=== PATIENT | male | born 1975 | race Caucasian/White ===

== ENCOUNTER 2019-10-15 10:31 | Outpatient (RCR) | payer MEDICARE, MEDICAID, SELFPAY ==
[2019-10-15 11:15] VITALS: BP 114/74; PULSE 87; RESP 18; TEMP 36.9
--- NOTE | 2019-10-15 17:05 | PCM.WC.HP ---
(1) Wound of right upper extremity Status: Acute Current Visit: Yes Code(s): S41.101A - Unspecified open wound of right upper arm, initial encounter Comment: Penetrating with fat layer exposed History of Present Illness Date of Service: 10/15/19 Chief Complaint: Nonhealing right upper extremity wound. History of Wound: Mr. Rollins was referred to the wound clinic due to Nonhealing right upper extremity wound. He is here with his aides who state it has been present for about 2 weeks. Currently resides in a home and his aide states that he picks at his skin a lot with recurrent scabbing and reopening. No dressing has been applied to this wound. They report no other concerns at this time. Past Medical History Allergies/Adverse Reactions: Allergies Gadolinium-MRI Contrast Medium [DYE] Allergy (Verified 10/15/19 11:21) Itching Home Medications: Ambulatory Orders Medication Instructions Recorded Atenolol [Tenormin (beta Ravi)] 37.5 mg PO DAILY 10/15/19 Chlorpromazine HCl 200 mg PO TID 10/15/19 Divalproex (ER) [Depakote ER] 1,000 mg PO QHS 10/15/19 Divalproex (ER) [Depakote ER] 500 mg PO DAILY 10/15/19 Loperamide HCl [Imodium A-D] 30 ml PO Q4H PRN PRN 10/15/19 Loratadine [Claritin] 10 mg PO DAILY 10/15/19 Lorazepam [Ativan] 0.5 mg PO TID 10/15/19 Multivit with Iron,Minerals 1 tab PO DAILY 10/15/19 [Complete Senior] Omeprazole [Prilosec] 20 mg PO DAILY 10/15/19 Paroxetine [Paxil] 40 mg PO DAILY 10/15/19 Quetiapine Fumarate [Seroquel] 100 mg PO BID 10/15/19 Risperidone [Risperdal] 1 mg PO DAILY 10/15/19 Smoking Status: Never smoker Review of Systems Constitutional: Denies: Anorexia, Chills, Fever Eyes: Denies: Drainage, Redness HEENT: Denies: Difficulty Hearing, Difficulty Swallowing, Nasal bleeding Cardiovascular: Denies: Edema, Orthopnea Respiratory: Denies: Hemoptysis, Wheezing Gastrointestinal: Denies: Hematemesis, Vomiting Genitourinary: Denies: Hematuria Skin: Denies: Jaundice - Physical Exam Vital Signs Temp Pulse Resp BP 98.4 F 87 18 114/74 10/15/19 11:15 10/15/19 11:15 10/15/19 11:15 10/15/19 11:15 General: Alert, Cooperative, No apparent distress HEENT: Atraumatic, Normocephalic Oral: Moist Mucosa Neck: Supple Lungs: Normal air movement Abdomen: Non Tender, Obese Extremities: No cyanosis Skin: Ulcer/ Wound Wound Measurements and Assessment WC - Nurse 1 - General Ulcer Measurement Start: 10/15/19 11:13 Freq: Status: Active Protocol: Activity Type Activity Date Activity User E-Sign Co-Sign Detail Recorded Client Recorded Date Recorded By Document 10/15/19 11:15 RB [id number] 10/15/19 11:18 RB 10/15/19 11:15 Wound Center Nurse 1 [Ulcer Assessment] 1. R arm lateral -Combined with other wound No -Current Size (cm) - Length 2 -Current Size (cm) - Width 1.4 -Current Size (cm) - Depth 0.1 -Total Square Cm 2.8 -Photo Taken Yes -Tunneling No -Undermining/Tunneling No -Circular Undermining No -Exudate Amt Small -Exudate Type Serosanguineous -Wound Margin Flat & Intact -Granulation Amt Medium (34-66%) -Granulation Quality [employer] -Slough/Fibrin Yes -Necrosis Amt Small (1-33%) -Necrotic Tissue Type Adherent Slough -Structure Exposed N/A -Texture (Erika-wound Skin Appearance) Scarring -Moisture (Erika-wound Skin Appearance Assessed ) -Color (Erika-wound Skin Appearance) Assessed -Temperature (Erika-wound Skin No Abnormality Appearance) (Pt Warm) -Tenderness on Palpation (Erika-wound No Skin Appearance) -Ulcer Cleansing Wound Cleanser -Foul Odor after Cleansing No -Anesthetic Used 4% Lidocaine Solution WC - Nurse 2 - General Ulcer CM Notes Start: 10/15/19 11:13 Freq: Status: Active Protocol: Activity Type Activity Date Activity User E-Sign Co-Sign Detail Recorded Client Recorded Date Recorded By Document 10/15/19 13:00 PL [id number] 10/15/19 13:02 PL 10/15/19 13:00 Wound Center Nurse 2 [Procedure/Treatment] -Time 10:52 -Correct Patient Yes -Correct Side, Site, Position Yes -Correct Procedure Yes -Procedure Performed Yes -Type of Procedure Debridement -Clinical Debridement Subcutaneous -Post Debridement Size (cm) - Length 1 -Post Debridement Size (cm) - Width 5 -Post Debridement Size (cm) - Depth 0.2 -Total Square Cm 5 -Wound/Ulcer Outcome Not Healed -Ulcer Cleansing Rinsed/ Irrigated with Saline -Foul Odor after Cleansing No -Bleeding Controlled with Pressure -Treatment Response Procedure Tolerated Well [See Physician Procedure note for Specifics] Pain Scale: 0-10 Numeric [Pain] -Is Patient Pain Free? Yes Musculoskeletal: No Muscle Wasting Psych/Mental Status: Normal Affect Debridement Note Post-Debridement Measurements/Treatment WC - Nurse 2 - General Ulcer CM Notes Start: 10/15/19 11:13 Freq: Status: Active Protocol: Activity Type Activity Date Activity User E-Sign Co-Sign Detail Recorded Client Recorded Date Recorded By Document 10/15/19 13:00 GABBI [id number] 10/15/19 13:02 PL 10/15/19 13:00 Wound Center Nurse 2 1. R arm lateral -Time 10:52 -Correct Patient Yes -Correct Side, Site, Position Yes -Correct Procedure Yes -Procedure Performed Yes -Type of Procedure Debridement -Clinical Debridement Subcutaneous -Post Debridement Size (cm) - Length 1 -Post Debridement Size (cm) - Width 5 -Post Debridement Size (cm) - Depth 0.2 -Total Square Cm 5 -Wound/Ulcer Outcome Not Healed -Ulcer Cleansing Rinsed/ Irrigated with Saline -Foul Odor after Cleansing No -Bleeding Controlled with Pressure -Treatment Response Procedure Tolerated Well Pain Scale: 0-10 Numeric Is Patient Pain Free? Yes Wound debrided: Right upper extremity Type of Debridement: Excisional debridement Anesthesia Used: 4% Lidocaine Solution Depth: Down to and including healthy tissue, in the subcutaneous layer Percentage of wound debrided: 100 Instrument Used: 7mm curette Tissue Removed: Slough and devitalized tissue Severity: Fat Layer Exposed Amount of bleeding with debridement: Mild Bleeding Controlled with: Pressure Patient tolerated procedure well Assessment/Plan Active Problems Wound of right upper extremity (Acute) Penetrating with fat layer exposed Assessment: Recurrent wounds. Right upper extremity wound. Plan: Debridement done as documented above. Procedure was well-tolerated. Promogran daily with Adaptic over top. Keep area protected. Increase protein intake. Call with any concerns. Follow-up in 2 weeks. This note was generated with [employer] dictation software. It may contain incorrect words, spelling, and punctuation that were not noted in checking the note before signing. Multi Select Codes - Visit Charges Office Visit/Consults: 93681 OV L3 New - Integumentary Integumentary CPT Codes: 75465 Radha subq tissue 20 sq cm/<
== END 2019-10-27 23:59 ==
LOC: WC 10:31
PROVIDERS: Visit Provider Internal Medicine
DX: S41.131A Puncture wound without foreign body of right upper arm, initial encounter (principal); X58.XXXA Exposure to other specified factors, initial encounter
CPT/HCPCS: 11042; 99203; G0463

== ENCOUNTER 2019-11-19 11:30 | Outpatient (RCR) | payer MEDICARE, MEDICAID, SELFPAY ==
[2019-10-28 00:38] VITALS: BP 114/74; PULSE 87; RESP 18; TEMP 36.9
[2019-10-29 10:29] VITALS: BP 141/78; PULSE 88; RESP 18; TEMP 36.2
--- NOTE | 2019-10-29 11:54 | PCM.WC.PN ---
(1) Ulcer of right lower extremity with fat layer exposed Status: Acute Current Visit: Yes Code(s): L97.912 - Non-pressure chronic ulcer of unspecified part of right lower leg with fat layer exposed (2) Wound of right upper extremity Status: Acute Current Visit: Yes Code(s): S41.101A - Unspecified open wound of right upper arm, initial encounter Comment: Penetrating with fat layer exposed Type of Wound Date of Service: 10/29/19 Chief Complaint: Nonhealing right upper extremity wound. History of Wound: Mr. Rollins was referred to the wound clinic due to Nonhealing right upper extremity wound. He is here with his aides who state it has been present for about 2 weeks. Currently resides in a home and his aide states that he picks at his skin a lot with recurrent scabbing and reopening. No dressing has been applied to this wound. They report no other concerns at this time. Progress of Wound: Presents with a new right lower extremity ulcer. Caregivers are not sure but believes that he may have picked it. - Physical Exam Vital Signs Temp Pulse Resp BP 97.1 F L 88 18 141/78 H 10/29/19 10:29 10/29/19 10:29 10/29/19 10:29 10/29/19 10:29 General: Alert, Cooperative, No apparent distress HEENT: Atraumatic, Normocephalic Oral: Moist Mucosa Neck: Supple Lungs: Normal air movement Abdomen: Non Tender, Obese Extremities: No cyanosis Skin: Ulcer/ Wound Wound Measurements and Assessment WC - Nurse 1 - General Ulcer Measurement Start: 10/29/19 10:29 Freq: Status: Active Protocol: Activity Type Activity Date Activity User E-Sign Co-Sign Detail Recorded Client Recorded Date Recorded By Document 10/29/19 10:29 RB [id number] 10/29/19 10:32 RB 10/29/19 10:29 Wound Center Nurse 1 [Ulcer Assessment] 2. R mckenna -Combined with other wound No -Current Size (cm) - Length 0.7 -Current Size (cm) - Width 1 -Current Size (cm) - Depth 0.1 -Total Square Cm 0.7 -Photo Taken Yes -Tunneling No -Undermining/Tunneling No -Circular Undermining No -Exudate Amt Small -Exudate Type Serosanguineous -Wound Margin Flat & Intact -Granulation Amt Large (67-100%) -Granulation Quality Red -Slough/Fibrin Yes -Necrosis Amt Small (1-33%) -Necrotic Tissue Type Adherent Slough -Structure Exposed N/A -Texture (Erkia-wound Skin Appearance) Assessed, Scarring -Moisture (Erika-wound Skin Appearance Assessed ) -Color (Erika-wound Skin Appearance) Assessed -Temperature (Erika-wound Skin No Abnormality Appearance) (Pt Warm) -Tenderness on Palpation (Erika-wound No Skin Appearance) -Ulcer Cleansing Wound Cleanser -Foul Odor after Cleansing No -Anesthetic Used 4% Lidocaine Solution 1. R arm lateral -Combined with other wound No -Current Size (cm) - Length 1.1 -Current Size (cm) - Width 1.9 -Current Size (cm) - Depth 0.1 -Total Square Cm 2.09 -Tunneling No -Undermining/Tunneling No -Circular Undermining No -Exudate Amt Small -Exudate Type Serosanguineous -Wound Margin Flat & Intact -Granulation Amt Large (67-100%) -Granulation Quality Red -Slough/Fibrin Yes -Necrosis Amt Small (1-33%) -Necrotic Tissue Type Adherent Slough -Structure Exposed N/A -Texture (Erika-wound Skin Appearance) Assessed, Scarring -Moisture (Erika-wound Skin Appearance Assessed ) -Color (Erika-wound Skin Appearance) Assessed -Temperature (Erika-wound Skin No Abnormality Appearance) (Pt Warm) -Tenderness on Palpation (Erika-wound No Skin Appearance) -Ulcer Cleansing Wound Cleanser -Foul Odor after Cleansing No -Anesthetic Used 4% Lidocaine Solution WC - Nurse 2 - General Ulcer CM Notes Start: 10/29/19 10:29 Freq: Status: Active Protocol: Activity Type Activity Date Activity User E-Sign Co-Sign Detail Recorded Client Recorded Date Recorded By Document 10/29/19 10:34 MW [id number] 10/29/19 10:37 MW 10/29/19 10:34 Wound Center Nurse 2 [Procedure/Treatment] 2. R mckenna -Time 10:35 -Correct Patient Yes -Correct Side, Site, Position Yes -Correct Procedure Yes -Procedure Performed Yes -Type of Procedure Debridement -Clinical Debridement Subcutaneous -Post Debridement Size (cm) - Length 0.7 -Post Debridement Size (cm) - Width 1.0 -Post Debridement Size (cm) - Depth 0.1 -Total Square Cm 0.70 -Wound/Ulcer Outcome Not Healed -Ulcer Cleansing Rinsed/ Irrigated with Saline -Foul Odor after Cleansing No -Bioengineered Tissue No -Bleeding Controlled with Pressure -Offloading No -Treatment Response Procedure Tolerated Well 1. R arm lateral -Time 10:35 -Correct Patient Yes -Correct Side, Site, Position Yes -Correct Procedure Yes -Procedure Performed Yes -Type of Procedure Debridement -Clinical Debridement Subcutaneous -Post Debridement Size (cm) - Length 1.4 -Post Debridement Size (cm) - Width 1.5 -Post Debridement Size (cm) - Depth 0.1 -Total Square Cm 2.10 -Wound/Ulcer Outcome Not Healed -Ulcer Cleansing Rinsed/ Irrigated with Saline -Foul Odor after Cleansing No -Bioengineered Tissue No -Bleeding Controlled with Pressure -Offloading No -Treatment Response Procedure Tolerated Well [See Physician Procedure note for Specifics] Pain Scale: 0-10 Numeric [Pain] -Is Patient Pain Free? Yes Musculoskeletal: No Muscle Wasting Neurological: Cranial nerves II-XII grossly intact Psych/Mental Status: Normal Affect Debridement Note Post-Debridement Measurements/Treatment WC - Nurse 2 - General Ulcer CM Notes Start: 10/29/19 10:29 Freq: Status: Active Protocol: Activity Type Activity Date Activity User E-Sign Co-Sign Detail Recorded Client Recorded Date Recorded By Document 10/29/19 10:34 MW [id number] 10/29/19 10:37 MW 10/29/19 10:34 Wound Center Nurse 2 2. R mckenna -Time 10:35 -Correct Patient Yes -Correct Side, Site, Position Yes -Correct Procedure Yes -Procedure Performed Yes -Type of Procedure Debridement -Clinical Debridement Subcutaneous -Post Debridement Size (cm) - Length 0.7 -Post Debridement Size (cm) - Width 1.0 -Post Debridement Size (cm) - Depth 0.1 -Total Square Cm 0.70 -Wound/Ulcer Outcome Not Healed -Ulcer Cleansing Rinsed/ Irrigated with Saline -Foul Odor after Cleansing No -Bioengineered Tissue No -Bleeding Controlled with Pressure -Offloading No -Treatment Response Procedure Tolerated Well 1. R arm lateral -Time 10:35 -Correct Patient Yes -Correct Side, Site, Position Yes -Correct Procedure Yes -Procedure Performed Yes -Type of Procedure Debridement -Clinical Debridement Subcutaneous -Post Debridement Size (cm) - Length 1.4 -Post Debridement Size (cm) - Width 1.5 -Post Debridement Size (cm) - Depth 0.1 -Total Square Cm 2.10 -Wound/Ulcer Outcome Not Healed -Ulcer Cleansing Rinsed/ Irrigated with Saline -Foul Odor after Cleansing No -Bioengineered Tissue No -Bleeding Controlled with Pressure -Offloading No -Treatment Response Procedure Tolerated Well Pain Scale: 0-10 Numeric Is Patient Pain Free? Yes Wound debrided: Right upper extremity (arm) Type of Debridement: Excisional debridement Anesthesia Used: 4% Lidocaine Solution Depth: Down to and including healthy tissue, in the subcutaneous layer Percentage of wound debrided: 100 Instrument Used: 5mm curette Tissue Removed: Slough and devitalized tissue Severity: Fat Layer Exposed Amount of bleeding with debridement: Mild Bleeding Controlled with: Pressure Patient tolerated procedure well - Additional Wound Wound debrided: Right lower extremity Type of Debridement: Excisional debridement Anesthesia Used: 4% Lidocaine Solution Depth: Down to and including healthy tissue, in the subcutaneous layer Instrument Used: 3mm curette Tissue Removed: Slough and devitalized tissue Severity: Fat Layer Exposed Amount of bleeding with debridement: Mild Bleeding Controlled with: Pressure Patient tolerated procedure: Patient tolerated procedure well Assessment/Plan Active Problems Wound of right upper extremity (Acute) Penetrating with fat layer exposed Ulcer of right lower extremity with fat layer exposed (Acute) Assessment: Recurrent wounds. Right upper extremity wound. Right lower extremity ulcer Plan: Debridement done as documented above. Procedure was well-tolerated. Promogran daily to both areas with Adaptic over top. Keep area protected. Increase protein intake. Call with any concerns. Follow-up in 2 weeks. This note was generated with [employer] dictation software. It may contain incorrect words, spelling, and punctuation that were not noted in checking the note before signing. [id number]: [id number] Radha subq tissue 20 sq cm/<
[2019-11-12 10:13] VITALS: BP 116/76; PULSE 88; RESP 18; TEMP 36.9
--- NOTE | 2019-11-12 11:59 | PCM.WC.PN ---
(1) Ulcer of right lower extremity with fat layer exposed Status: Acute Current Visit: Yes Code(s): L97.912 - Non-pressure chronic ulcer of unspecified part of right lower leg with fat layer exposed (2) Wound of right upper extremity Status: Acute Current Visit: Yes Code(s): S41.101A - Unspecified open wound of right upper arm, initial encounter Comment: Penetrating with fat layer exposed Type of Wound Date of Service: 11/12/19 Chief Complaint: Nonhealing right upper extremity wound. History of Wound: Mr. Rollins was referred to the wound clinic due to Nonhealing right upper extremity wound. He is here with his aides who state it has been present for about 2 weeks. Currently resides in a home and his aide states that he picks at his skin a lot with recurrent scabbing and reopening. No dressing has been applied to this wound. They report no other concerns at this time. Progress of Wound: Improving, no new concerns at this time. - Physical Exam Vital Signs Temp Pulse Resp BP 98.5 F 88 18 116/76 11/12/19 10:13 11/12/19 10:13 11/12/19 10:13 11/12/19 10:13 General: Alert, Oriented x3, Cooperative, No apparent distress HEENT: Atraumatic, Normocephalic Oral: Moist Mucosa Neck: Supple Lungs: Normal air movement Extremities: No cyanosis Skin: Ulcer/ Wound Wound Measurements and Assessment WC - Nurse 1 - General Ulcer Measurement Start: 10/29/19 10:29 Freq: Status: Active Protocol: Activity Type Activity Date Activity User E-Sign Co-Sign Detail Recorded Client Recorded Date Recorded By Document 11/12/19 10:13 [id number] 11/12/19 10:19 STEVEN 11/12/19 10:13 Wound Center Nurse 1 [Ulcer Assessment] 2. R mckenna -Combined with other wound No -Current Size (cm) - Length 0.1 -Current Size (cm) - Width 0.1 -Current Size (cm) - Depth 0.1 -Total Square Cm 0.01 -Tunneling No -Undermining/Tunneling No -Circular Undermining No -Exudate Amt Small -Exudate Type Serosanguineous -Wound Margin Flat & Intact -Granulation Amt Medium (34-66%) -Granulation Quality [place],Red -Slough/Fibrin Yes -Necrosis Amt Small (1-33%) -Necrotic Tissue Type Adherent Slough -Structure Exposed N/A -Texture (Erika-wound Skin Appearance) Assessed -Moisture (Erika-wound Skin Appearance Assessed ) -Color (Erika-wound Skin Appearance) Assessed -Temperature (Erika-wound Skin No Abnormality Appearance) (Pt Warm) -Tenderness on Palpation (Erika-wound No Skin Appearance) -Ulcer Cleansing Wound Cleanser -Foul Odor after Cleansing No -Anesthetic Used 4% Lidocaine Solution 1. R arm lateral -Combined with other wound No -Current Size (cm) - Length 1.1 -Current Size (cm) - Width 1.9 -Current Size (cm) - Depth 0.1 -Total Square Cm 2.09 -Tunneling No -Undermining/Tunneling No -Circular Undermining No -Exudate Amt Small -Exudate Type Serosanguineous -Wound Margin Flat & Intact -Granulation Amt Large (67-100%) -Granulation Quality [place],Red -Slough/Fibrin Yes -Necrosis Amt Small (1-33%) -Necrotic Tissue Type Adherent Slough -Structure Exposed N/A -Texture (Erika-wound Skin Appearance) Assessed -Moisture (Erika-wound Skin Appearance Assessed ) -Color (Erika-wound Skin Appearance) Assessed -Temperature (Erika-wound Skin No Abnormality Appearance) (Pt Warm) -Tenderness on Palpation (Erika-wound No Skin Appearance) -Ulcer Cleansing Wound Cleanser -Foul Odor after Cleansing No -Anesthetic Used 4% Lidocaine Solution WC - Nurse 2 - General Ulcer CM Notes Start: 10/29/19 10:29 Freq: Status: Active Protocol: Activity Type Activity Date Activity User E-Sign Co-Sign Detail Recorded Client Recorded Date Recorded By Document 11/12/19 10:32 MW [id number] 11/12/19 10:35 MW 11/12/19 10:32 Wound Center Nurse 2 [Procedure/Treatment] 2. R mckenna -Time 10:33 -Correct Patient Yes -Correct Side, Site, Position Yes -Correct Procedure Yes -Procedure Performed No -Post Debridement Size (cm) - Length 0.1 -Post Debridement Size (cm) - Width 0.1 -Post Debridement Size (cm) - Depth 0.1 -Total Square Cm 0.01 -Wound/Ulcer Outcome Not Healed -Ulcer Cleansing Rinsed/ Irrigated with Saline -Foul Odor after Cleansing No -Bioengineered Tissue No -Bleeding Controlled with NA -Offloading No -Treatment Response Procedure Tolerated Well 1. R arm lateral -Time 10:33 -Correct Patient Yes -Correct Side, Site, Position Yes -Correct Procedure Yes -Procedure Performed Yes -Type of Procedure Debridement -Clinical Debridement Subcutaneous -Post Debridement Size (cm) - Length 1.0 -Post Debridement Size (cm) - Width 1.2 -Post Debridement Size (cm) - Depth 0.1 -Total Square Cm 1.20 -Wound/Ulcer Outcome Not Healed -Ulcer Cleansing Rinsed/ Irrigated with Saline -Foul Odor after Cleansing No -Bioengineered Tissue No -Bleeding Controlled with Pressure -Offloading No -Treatment Response Procedure Tolerated Well [See Physician Procedure note for Specifics] Pain Scale: 0-10 Numeric [Pain] -Is Patient Pain Free? Yes Musculoskeletal: No Muscle Wasting Neurological: Cranial nerves II-XII grossly intact Psych/Mental Status: Normal Affect Debridement Note Post-Debridement Measurements/Treatment WC - Nurse 2 - General Ulcer CM Notes Start: 10/29/19 10:29 Freq: Status: Active Protocol: Activity Type Activity Date Activity User E-Sign Co-Sign Detail Recorded Client Recorded Date Recorded By Document 10/29/19 10:34 MW [id number] 10/29/19 10:37 MW Document 11/12/19 10:32 MW [id number] 11/12/19 10:35 MW 10/29/19 11/12/19 10:34 10:32 Wound Center Nurse 2 2. R mckenna -Time 10:35 10:33 -Correct Patient Yes Yes -Correct Side, Site, Position Yes Yes -Correct Procedure Yes Yes -Procedure Performed Yes No -Type of Procedure Debridement -Clinical Debridement Subcutaneous -Post Debridement Size (cm) - Length 0.7 0.1 -Post Debridement Size (cm) - Width 1.0 0.1 -Post Debridement Size (cm) - Depth 0.1 0.1 -Total Square Cm 0.70 0.01 -Wound/Ulcer Outcome Not Healed Not Healed -Ulcer Cleansing Rinsed/ Rinsed/ Irrigated with Irrigated with Saline Saline -Foul Odor after Cleansing No No -Bioengineered Tissue No No -Bleeding Controlled with Pressure NA -Offloading No No -Treatment Response Procedure Procedure Tolerated Well Tolerated Well 1. R arm lateral -Time 10:35 10:33 -Correct Patient Yes Yes -Correct Side, Site, Position Yes Yes -Correct Procedure Yes Yes -Procedure Performed Yes Yes -Type of Procedure Debridement Debridement -Clinical Debridement Subcutaneous Subcutaneous -Post Debridement Size (cm) - Length 1.4 1.0 -Post Debridement Size (cm) - Width 1.5 1.2 -Post Debridement Size (cm) - Depth 0.1 0.1 -Total Square Cm 2.10 1.20 -Wound/Ulcer Outcome Not Healed Not Healed -Ulcer Cleansing Rinsed/ Rinsed/ Irrigated with Irrigated with Saline Saline -Foul Odor after Cleansing No No -Bioengineered Tissue No No -Bleeding Controlled with Pressure Pressure -Offloading No No -Treatment Response Procedure Procedure Tolerated Well Tolerated Well Pain Scale: 0-10 Numeric Is Patient Pain Free? Yes Yes Wound debrided: Right arm Type of Debridement: Excisional debridement Anesthesia Used: 4% Lidocaine Solution Depth: Down to and including healthy tissue, in the subcutaneous layer Percentage of wound debrided: 100 Instrument Used: 3mm curette Tissue Removed: Slough and devitalized tissue Severity: Fat Layer Exposed Amount of bleeding with debridement: Mild Bleeding Controlled with: Pressure Patient tolerated procedure well Assessment/Plan Active Problems Wound of right upper extremity (Acute) Penetrating with fat layer exposed Ulcer of right lower extremity with fat layer exposed (Acute) Assessment: Recurrent wounds. Right upper extremity wound. Right lower extremity ulcer Plan: Debridement done as documented above. Procedure was well-tolerated. Promogran daily to both areas with Adaptic over top. Keep area protected. Increase protein intake. Call with any concerns. Follow-up in 1 week. This note was generated with [employer] software. It may contain incorrect words, spelling, and punctuation that were not noted in checking the note before signing. 111xxx-113xx: [id number] Radha subq tissue 20 sq cm/<
[2019-11-19 11:34] VITALS: BP 89/66; PULSE 81; RESP 16; TEMP 36.6
--- NOTE | 2019-11-19 12:40 | PCM.WC.PN ---
(1) Ulcer of right lower extremity with fat layer exposed Status: Acute Current Visit: Yes Code(s): L97.912 - Non-pressure chronic ulcer of unspecified part of right lower leg with fat layer exposed (2) Wound of right upper extremity Status: Acute Current Visit: Yes Code(s): S41.101A - Unspecified open wound of right upper arm, initial encounter Comment: Penetrating with fat layer exposed Type of Wound Date of Service: 11/19/19 Chief Complaint: Nonhealing right upper extremity wound. History of Wound: Mr. Rollins was referred to the wound clinic due to Nonhealing right upper extremity wound. He is here with his aides who state it has been present for about 2 weeks. Currently resides in a home and his aide states that he picks at his skin a lot with recurrent scabbing and reopening. No dressing has been applied to this wound. They report no other concerns at this time. Progress of Wound: Right upper extremity with no significant change. Only able to leave the dressing overnight due to patient picking at dressing. - Physical Exam Vital Signs Temp Pulse Resp BP 97.9 F 81 16 89/66 L 11/19/19 11:34 11/19/19 11:34 11/19/19 11:34 11/19/19 11:34 General: Alert, Oriented x3, Cooperative, No apparent distress HEENT: Atraumatic, Normocephalic Oral: Moist Mucosa Neck: Supple Lungs: Normal air movement Abdomen: Non Tender, Obese Extremities: No cyanosis Skin: Ulcer/ Wound Wound Measurements and Assessment WC - Nurse 1 - General Ulcer Measurement Start: 10/29/19 10:29 Freq: Status: Active Protocol: Activity Type Activity Date Activity User E-Sign Co-Sign Detail Recorded Client Recorded Date Recorded By Document 11/19/19 11:34 [facility] [id number] 11/19/19 11:39 [facility] 11/19/19 11:34 Wound Center Nurse 1 [Ulcer Assessment] 2. R mckenna -Current Size (cm) - Length 0.1 -Current Size (cm) - Width 0.1 -Current Size (cm) - Depth 0.1 -Total Square Cm 0.01 -Photo Taken No -Exudate Amt Small -Exudate Type Serosanguineous -Wound Margin Distinct, Outline Attached -Granulation Amt Large (67-100%) -Granulation Quality [place] -Necrosis Amt Small (1-33%) -Necrotic Tissue Type Adherent Slough -Structure Exposed N/A -Texture (Erika-wound Skin Appearance) Scarring -Moisture (Erika-wound Skin Appearance No Abnormality ) -Color (Erika-wound Skin Appearance) No Abnormality -Temperature (Erika-wound Skin No Abnormality Appearance) (Pt Warm) -Tenderness on Palpation (Erika-wound No Skin Appearance) -Ulcer Cleansing Wound Cleanser -Foul Odor after Cleansing No -Anesthetic Used 4% Lidocaine Solution 1. R arm lateral -Current Size (cm) - Length 1.2 -Current Size (cm) - Width 2.2 -Current Size (cm) - Depth 0.1 -Total Square Cm 2.64 -Photo Taken No -Exudate Amt Small -Exudate Type Serosanguineous -Wound Margin Distinct, Outline Attached -Granulation Amt Large (67-100%) -Granulation Quality Red -Necrosis Amt None Present (0 %) -Structure Exposed N/A -Texture (Erika-wound Skin Appearance) Scarring -Moisture (Erika-wound Skin Appearance No Abnormality ) -Color (Erika-wound Skin Appearance) No Abnormality -Temperature (Erika-wound Skin No Abnormality Appearance) (Pt Warm) -Tenderness on Palpation (Erika-wound No Skin Appearance) -Ulcer Cleansing Rinsed/ Irrigated with Saline -Foul Odor after Cleansing No -Anesthetic Used 4% Lidocaine Solution Musculoskeletal: No Muscle Wasting Neurological: Cranial nerves II-XII grossly intact Psych/Mental Status: Normal Affect Debridement Note Post-Debridement Measurements/Treatment WC - Nurse 2 - General Ulcer CM Notes Start: 10/29/19 10:29 Freq: Status: Active Protocol: Activity Type Activity Date Activity User E-Sign Co-Sign Detail Recorded Client Recorded Date Recorded By Document 10/29/19 10:34 MW [id number] 10/29/19 10:37 MW Document 11/12/19 10:32 MW [id number] 11/12/19 10:35 MW 10/29/19 11/12/19 10:34 10:32 Wound Center Nurse 2 2. R mckenna -Time 10:35 10:33 -Correct Patient Yes Yes -Correct Side, Site, Position Yes Yes -Correct Procedure Yes Yes -Procedure Performed Yes No -Type of Procedure Debridement -Clinical Debridement Subcutaneous -Post Debridement Size (cm) - Length 0.7 0.1 -Post Debridement Size (cm) - Width 1.0 0.1 -Post Debridement Size (cm) - Depth 0.1 0.1 -Total Square (cm) 0.70 0.01 -Wound/Ulcer Outcome Not Healed Not Healed -Ulcer Cleansing Rinsed/ Rinsed/ Irrigated with Irrigated with Saline Saline -Foul Odor after Cleansing No No -Bioengineered Tissue No No -Bleeding Controlled with Pressure NA -Offloading No No -Treatment Response Procedure Procedure Tolerated Well Tolerated Well 1. R arm lateral -Time 10:35 10:33 -Correct Patient Yes Yes -Correct Side, Site, Position Yes Yes -Correct Procedure Yes Yes -Procedure Performed Yes Yes -Type of Procedure Debridement Debridement -Clinical Debridement Subcutaneous Subcutaneous -Post Debridement Size (cm) - Length 1.4 1.0 -Post Debridement Size (cm) - Width 1.5 1.2 -Post Debridement Size (cm) - Depth 0.1 0.1 -Total Square (cm) 2.10 1.20 -Wound/Ulcer Outcome Not Healed Not Healed -Ulcer Cleansing Rinsed/ Rinsed/ Irrigated with Irrigated with Saline Saline -Foul Odor after Cleansing No No -Bioengineered Tissue No No -Bleeding Controlled with Pressure Pressure -Offloading No No -Treatment Response Procedure Procedure Tolerated Well Tolerated Well Pain Scale: 0-10 Numeric Is Patient Pain Free? Yes Yes Wound debrided: Right upper extremity Type of Debridement: Excisional debridement Anesthesia Used: 4% Lidocaine Solution Depth: Down to and including healthy tissue, in the subcutaneous layer Percentage of wound debrided: 100 Instrument Used: 5mm curette Tissue Removed: Slough and devitalized tissue Severity: Fat Layer Exposed Amount of bleeding with debridement: Mild Bleeding Controlled with: Pressure Patient tolerated procedure well - Additional Wound Wound debrided: Right lower extremity Type of Debridement: Excisional debridement Anesthesia Used: 4% Lidocaine Solution Depth: Down to and including healthy tissue, in the subcutaneous layer Percentage of wound debrided: 100 Instrument Used: 3mm curette Tissue Removed: Slough and-Devitalized tissue Severity: Fat Layer Exposed Amount of bleeding with debridement: Mild Bleeding Controlled with: Pressure Patient tolerated procedure: Patient tolerated procedure well Assessment/Plan Active Problems Wound of right upper extremity (Acute) Penetrating with fat layer exposed Ulcer of right lower extremity with fat layer exposed (Acute) Assessment: Recurrent wounds. Right upper extremity wound. Right lower extremity ulcer Plan: Debridement done as documented above. Procedure was well-tolerated. Promogran daily to both areas with Adaptic over top. Keep area protected. His caregivers however state that they unable to keep dressings on. Patient picks at it and has multiple showers daily. Increase protein intake. Call with any concerns. Follow-up in 1 week. This note was generated with [employer] dictation software. It may contain incorrect words, spelling, and punctuation that were not noted in checking the note before signing. [id number]: [id number] Radha subq tissue 20 sq cm/<
== END 2019-11-27 23:59 ==
LOC: WC 11:30
PROVIDERS: Visit Provider Internal Medicine
DX: L97.912 Non-pressure chronic ulcer of unspecified part of right lower leg with fat layer exposed (principal); S41.101A Unspecified open wound of right upper arm, initial encounter; X58.XXXA Exposure to other specified factors, initial encounter; Y93.9 Activity, unspecified; Y92.9 Unspecified place or not applicable; Y99.9 Unspecified external cause status; Z79.899 Other long term (current) drug therapy
CPT/HCPCS: 11042; 99213; G0463

== ENCOUNTER 2019-12-17 09:15 | Outpatient (RCR) | payer MEDICARE, MEDICAID, SELFPAY ==
[2019-12-03 10:17] VITALS: BP 153/89; PULSE 89; RESP 18; TEMP 36.4
--- NOTE | 2019-12-03 10:51 | PCM.WC.PN ---
(1) Ulcer of right lower extremity with fat layer exposed Status: Chronic Current Visit: Yes Code(s): L97.912 - Non-pressure chronic ulcer of unspecified part of right lower leg with fat layer exposed (2) Wound of right upper extremity Status: Chronic Current Visit: Yes Code(s): S41.101A - Unspecified open wound of right upper arm, initial encounter Comment: Penetrating with fat layer exposed Type of Wound Date of Service: 12/03/19 Chief Complaint: Nonhealing right upper extremity wound. History of Wound: Mr. Rollins was referred to the wound clinic due to Nonhealing right upper extremity wound. He is here with his aides who state it has been present for about 2 weeks. Currently resides in a home and his aide states that he picks at his skin a lot with recurrent scabbing and reopening. No dressing has been applied to this wound. They report no other concerns at this time. Progress of Wound: Worsening right upper extremity wound. He has had no dressing placed in 2 weeks. - Physical Exam Vital Signs Temp Pulse Resp BP 97.5 F L 89 18 153/89 H 12/03/19 10:17 12/03/19 10:17 12/03/19 10:17 12/03/19 10:17 General: Alert, Cooperative, No apparent distress HEENT: Atraumatic, Normocephalic Oral: Moist Mucosa Neck: Supple Lungs: Normal air movement Extremities: No cyanosis Skin: Ulcer/ Wound Wound Measurements and Assessment WC - Nurse 1 - General Ulcer Measurement Start: 12/03/19 10:17 Freq: Status: Active Protocol: Activity Type Activity Date Activity User E-Sign Co-Sign Detail Recorded Client Recorded Date Recorded By Document 12/03/19 10:17 [id number] 12/03/19 10:24 RB 12/03/19 10:17 Wound Center Nurse 1 [Ulcer Assessment] 2. R mckenna -Current Size (cm) - Length 0.6 -Current Size (cm) - Width 0.5 -Current Size (cm) - Depth 0.1 -Total Square Cm 0.30 -Photo Taken No -Exudate Amt Small -Exudate Type Sanguineous -Wound Margin Distinct, Outline Attached -Granulation Amt Small (1-33%) -Granulation Quality [place],Red -Necrosis Amt Small (1-33%) -Necrotic Tissue Type Adherent Slough -Structure Exposed N/A -Texture (Erika-wound Skin Appearance) Scarring -Moisture (Erika-wound Skin Appearance No Abnormality ) -Color (Erika-wound Skin Appearance) No Abnormality -Temperature (Erika-wound Skin No Abnormality Appearance) (Pt Warm) -Ulcer Cleansing Wound Cleanser -Foul Odor after Cleansing No -Anesthetic Used 4% Lidocaine Solution 1. R arm lateral -Current Size (cm) - Length 2 -Current Size (cm) - Width 3 -Current Size (cm) - Depth 0.1 -Total Square Cm 6 -Photo Taken No -Exudate Amt Small -Exudate Type Serosanguineous -Wound Margin Distinct, Outline Attached -Granulation Amt Large (67-100%) -Granulation Quality Pale,Red -Necrosis Amt Small (1-33%) -Necrotic Tissue Type Adherent Slough -Structure Exposed N/A -Texture (Erika-wound Skin Appearance) Scarring -Moisture (Erika-wound Skin Appearance No Abnormality ) -Color (Erika-wound Skin Appearance) No Abnormality -Temperature (Erika-wound Skin No Abnormality Appearance) (Pt Warm) -Tenderness on Palpation (Erika-wound No Skin Appearance) -Ulcer Cleansing Wound Cleanser -Foul Odor after Cleansing No -Anesthetic Used 4% Lidocaine Solution Musculoskeletal: No Muscle Wasting Neurological: Cranial nerves II-XII grossly intact Debridement Note Wound debrided: Right Upper Extremity Type of Debridement: Excisional debridement Anesthesia Used: 4% Lidocaine Solution Depth: Down to and including healthy tissue, in the subcutaneous layer Percentage of wound debrided: 100 Instrument Used: 5mm curette Tissue Removed: Slough and devitalized tissue Severity: Fat Layer Exposed Amount of bleeding with debridement: Mild Bleeding Controlled with: Pressure Patient tolerated procedure well Assessment/Plan Active Problems Wound of right upper extremity (Chronic) Penetrating with fat layer exposed Ulcer of right lower extremity with fat layer exposed (Chronic) Assessment: Recurrent wounds. Right upper extremity wound. Right lower extremity ulcer Plan: Debridement done as documented above. Procedure was well-tolerated. Promogran to wounds with Adaptic over top. Apply morning and night. Keep area protected. His caregivers however state that they unable to keep dressings on during the day. They state that patient picks at it and has multiple showers daily. Very lengthy discussion had about keeping the dressing on at least at night. They were informed that we would not see him here if they do not dress the wound as recommended. Increase protein intake. Call with any concerns. Follow-up in 2 weeks. This note was generated with [employer] software. It may contain incorrect words, spelling, and punctuation that were not noted in checking the note before signing. [id number]: [id number] Radha subq tissue 20 sq cm/<
--- NOTE | 2019-12-17 12:36 | PN.PCM_ITS ---
(1) Ulcer of right lower extremity with fat layer exposed Status: Chronic Current Visit: Yes Code(s): L97.912 - Non-pressure chronic ulcer of unspecified part of right lower leg with fat layer exposed (2) Wound of right upper extremity Status: Chronic Current Visit: Yes Code(s): S41.101A - Unspecified open wound of right upper arm, initial encounter Comment: Penetrating with fat layer exposed Type of Wound Date of Service: 12/17/19 Chief Complaint: Nonhealing right upper extremity wound. History of Wound: Mr. Rollins was referred to the wound clinic due to Nonhealing right upper extremity wound. He is here with his aides who state it has been present for about 2 weeks. Currently resides in a home and his aide states that he picks at his skin a lot with recurrent scabbing and reopening. No dressing has been applied to this wound. They report no other concerns at this time. Progress of Wound: New and worsening right upper extremity wound. His care givers do not know when and how he got it. They are also no dressing up the wounds at night. - Physical Exam Vital Signs Temp Pulse Resp BP 97.5 F L 89 18 153/89 H 12/03/19 10:17 12/03/19 10:17 12/03/19 10:17 12/03/19 10:17 General: Alert, Oriented x3, Cooperative, No apparent distress HEENT: Atraumatic, Normocephalic Oral: Moist Mucosa Neck: Supple Lungs: Normal air movement Abdomen: Non Tender, Obese Extremities: No cyanosis Skin: Ulcer/ Wound Wound Measurements and Assessment WC - Nurse 3 - General Ulcer D/C NN Start: 12/15/19 19:58 Freq: Status: Active Protocol: Activity Type Activity Date Activity User E-Sign Co-Sign Detail Recorded Client Recorded Date Recorded By Document 12/17/19 10:43 RB [id number] 12/17/19 10:45 RB 12/17/19 10:43 Wound Care Nurse 3 [Wound Dressing] 2. R mckenna -Ulcer Cleansing Wound Cleanser -Primary Dressing Applied Promogran -Primary Dressing Covered/Secured Dry Gauze, with Secured with Tape -Promogran 1 1. R arm lateral -Ulcer Cleansing Wound Cleanser -Other Dressing promogran -Primary Dressing Covered/Secured Dry Gauze, with Secured with Tape [Post Procedure Tolerated] -Treatment Response Procedure Tolerated Well Pain Scale: 0-10 Numeric [Pain] -Is Patient Pain Free? Yes Teaching: Wound Center [Wound Center Education] (Items with an * have Printed Materials Available- Please identify what is given to patient under the Teaching materials given to patient and caregiver Section. Dressing Your Wound -Person Taught Patient,Primary Caregiver -Teaching Method Discussion, Demonstration -Response to teaching Reinforcement needed WC - Visit Discharge [Visit Discharge Information] -Discharge Condition Stable -Ambulatory Status Ambulatory -Transportation Private Auto -Medication Reconcilliation completed No & provided to patient/care provider -Clinical Summary of Care Provided Yes Musculoskeletal: No Muscle Wasting Neurological: Cranial nerves II-XII grossly intact Psych/Mental Status: Normal Affect Debridement Note Post-Debridement Measurements/Treatment WC - Nurse 3 - General Ulcer D/C NN Start: 12/15/19 19:58 Freq: Status: Active Protocol: Activity Type Activity Date Activity User E-Sign Co-Sign Detail Recorded Client Recorded Date Recorded By Document 12/17/19 10:43 RB [id number] 12/17/19 10:45 RB 12/17/19 10:43 Wound Care Nurse 3 2. R mckenna -Ulcer Cleansing Wound Cleanser -Primary Dressing Applied Promogran -Primary Dressing Covered/Secured with Dry Gauze, Secured with Tape -Promogran 1 1. R arm lateral -Ulcer Cleansing Wound Cleanser -Other Dressing promogran -Primary Dressing Covered/Secured with Dry Gauze, Secured with Tape Treatment Response Procedure Tolerated Well Pain Scale: 0-10 Numeric Is Patient Pain Free? Yes Teaching: Wound Center Dressing Your Wound -Person Taught Patient,Primary Caregiver -Teaching Method Discussion, Demonstration -Response to teaching Reinforcement needed WC - Visit Discharge Discharge Condition Stable Ambulatory Status Ambulatory Transportation Private Auto Medication Reconcilliation completed & No provided to patient/care provider Clinical Summary of Care Provided Yes Wound debrided: Right Upper Arm Cluster Type of Debridement: Excisional debridement Anesthesia Used: 4% Lidocaine Solution Depth: Down to and including healthy tissue, in the subcutaneous layer Percentage of wound debrided: 100 Instrument Used: 5mm curette Tissue Removed: Slough and devitalized tissue Severity: Fat Layer Exposed Amount of bleeding with debridement: Mild Bleeding Controlled with: Pressure Patient tolerated procedure well - Additional Wound Wound debrided: Right mckenna ( superior ) Type of Debridement: Excisional debridement Anesthesia Used: 4% Lidocaine Solution Depth: Down to and including healthy tissue, in the subcutaneous layer Percentage of wound debrided: 100 Instrument Used: 3mm curette Tissue Removed: Slough and devitalized tissue Severity: Fat Layer Exposed Amount of bleeding with debridement: Mild Bleeding Controlled with: Pressure Patient tolerated procedure: Patient tolerated procedure well - Additional Wound Wound debrided: Right Mckenna ( Inferior ) Type of Debridement: Excisional debridement Anesthesia Used: 4% Lidocaine Solution Depth: Down to and including healthy tissue, in the subcutaneous layer Percentage of wound debrided: 100 Instrument Used: 3mm curette Tissue Removed: Slough and devitalized tissue Severity: Fat Layer Exposed Amount of bleeding with debridement: Mild Bleeding Controlled with: Pressure Patient tolerated procedure: Patient tolerated procedure well Assessment/Plan Active Problems Wound of right upper extremity (Chronic) Penetrating with fat layer exposed Ulcer of right lower extremity with fat layer exposed (Chronic) Assessment: Recurrent wounds. Right upper extremity wound. Right lower extremity ulcer Plan: Debridement done as documented above. Procedure was well-tolerated. Promogran to wounds with Adaptic over top. Apply morning and night. Keep area protected. His caregivers now state that they are applying the dressing during the day but are not sure hpw long he keeps it on for or if he is being dressed at night as well. Compliance had been discussed at his last bisit extensively. I am nopt convinced his wounds are been managed appropraitely. I have given a 30 day notice of complaince. Failure to do will result in discharge from the [facility]. They voiced understanding. Increase protein intake. Call with any concerns. Follow-up in 2 weeks. This note was generated with [employer] dictation software. It may contain incorrect words, spelling, and punctuation that were not noted in checking the note before signing. [id number]: [id number] Radha subq tissue 20 sq cm/<
== END 2019-12-28 23:59 ==
LOC: WC 09:15
PROVIDERS: Referring Provider Internal Medicine; Visit Provider Internal Medicine
DX: S41.101A Unspecified open wound of right upper arm, initial encounter (principal); X58.XXXA Exposure to other specified factors, initial encounter; Y93.9 Activity, unspecified; Y92.9 Unspecified place or not applicable; Y99.9 Unspecified external cause status; L97.812 Non-pressure chronic ulcer of other part of right lower leg with fat layer exposed; Z79.899 Other long term (current) drug therapy
CPT/HCPCS: 11042

== ENCOUNTER 2019-12-31 07:33 | Outpatient (RCR) | payer MEDICARE, MEDICAID, SELFPAY ==
[2019-12-29 00:46] VITALS: BP 153/89; PULSE 89; RESP 18; TEMP 36.4
== END 2020-01-21 10:48 | disposition home or self-care (01) ==
LOC: WC 07:33
PROVIDERS: Referring Provider Internal Medicine; Visit Provider Internal Medicine
DX: Z91.19 Patient's noncompliance with other medical treatment and regimen (principal)